=== PATIENT | male | born 1970 | race Caucasian/White ===

== ENCOUNTER 2020-04-22 21:03 | Observation (INO) | payer BC ==
[2020-04-22 21:48] LABS: #Eosinphils 0.6 thou/uL (0.0-0.7); #Lymphocytes 2.9 thou/uL (1.20-3.40); #Monocytes 0.7 thou/uL (0.11-0.59); #Neutrophils 5.1 thou/uL (1.40-6.50); %Basophils 0.5 % (0.0-1.0); %Eosinophils 6.1 % (0.0-10.0); %Lymphocytes 31.1 % (21.0-51.0); %Monocytes 7.5 % (0.0-10.0); %Neutrophils 54.8 % (42.0-75.0); Hemoglobin 15.9 g/dL (14.0-18.0); Mean Corpuscular HGB CONC 33.6 g/dL (32.0-36.0); Mean Corpuscular Volume 95.4 fL (78.0-98.0); Mean Platelet Volume 7.2 fL (7.4-10.4); Platelet Count 197 thou/uL (130-400); RBC Distribution Width 11.4 % (11.5-14.5); Red Blood Cell (RBC) Count 4.97 mill/uL (4.70-6.10); White Blood Cell (WBC) Count 9.3 thou/uL (4.8-10.8)
--- NOTE | 2020-04-22 21:53 | RAD ---
FRONTAL RADIOGRAPH CHEST: 04/22/20 COMPARISON: None. HISTORY: Chest tightness, chest pain. FINDINGS: Lungs are clear. Heart and mediastinal contours are unremarkable. IMPRESSION: No acute findings. POS: [facility]
[2020-04-22 22:22] LABS: CKMB 2.1 ng/mL (0-6.6)
[2020-04-22] MEDS ORDERED: Aspirin Chewable 81 MG TAB ONE (22:29)
[2020-04-22] MEDS ORDERED: Nitroglycerin 2% Ointment 1 INCH/1 GM Packet ONE (22:29)
[2020-04-22 22:57] LABS: ALT (SGPT) 16 U/L (8-55); AST (SGOT) 15 U/L (5-34); Albumin 4.7 g/dL (3.5-5.0); Alkaline Phosphatase 60 U/L (40-110); Anion Gap 15 mmol/L (10-20); BUN (Urea Nitrogen) 21 mg/dL (8.4-25.7); Bilirubin, Total 0.8 mg/dL (0.2-1.2); CK (CPK) 107 U/L (30-200); Calc. Creatinine Clearance 0 mL/min (70-130); Carbon Dioxide 29 mmol/L (22-29); Chloride 99 mmol/L (98-107); Estimated GFR-MDRD 68; Globulin 3.1 g/dL (2.4-3.5); Glucose 139 mg/dL (70-105); Lipase 23 U/L (8-78); Potassium 4.5 mmol/L (3.5-5.1); Protein, Total 7.8 g/dL (6.0-8.3); Sodium 138 mmol/L (136-145)
[2020-04-22] MEDS ORDERED: Enoxaparin Sodium 80 MG/0.8 ML SYRINGE ONE (23:13)
[2020-04-23] MEDS ORDERED: Acetaminophen 325 MG TAB PO PRN (00:25)
[2020-04-23] MEDS ORDERED: Acetaminophen 650 MG Suppository PR PRN (00:25)
[2020-04-23] MEDS ORDERED: Nitroglycerin 0.4 MG TAB (25 Tab Bottle) PO PRN (00:30)
[2020-04-23] MEDS ORDERED: Sodium Chloride 0.9% 1,000 ML IV SCH (00:30)
--- NOTE | 2020-04-23 00:44 | PDOC.HHP ---
Hospitalist HPI - History of Present Illness Chest pain History of Present Illness: Patient presents with complaints of intermittent exertional chest pain for the last 3 days. He states the level of pain ranges from 4 to 6 out of 10 in severity. The worst pain typically brought on when he walks long distances. Mild pain with light activity such as washing dishes. He reports being fairly active and initially thought his pain might be muscular in nature since it seemed to be exacerbated when laying on his right side. The pain at times radiates to right arm, sometimes to his back. He tried taking aspirin on two occasions for the pain. He states what always helps immediately is when he stops to rest. He has had a stress test in the past many years ago but has been worried about his asthma and his chronic issues with tachycardia to have another one done. ED Course: He had an EKG done which was unremarkable, HR 97. Chest xray showed no acute changes. Labs obtained demonstrated a trop of 0.108, CKMB 2.1. FBC unremarkable. LFTs normal and lipase 23. BUN 21, Creat 1.13, GFR 68. Given Lovenox 1 mg/kg x 1. Nitro bid 1 inch and 324 mg of Aspirin. Hospitalist ROS - Review of Systems Constitutional: denies: fever, chills, sweats, weakness, malaise, other Eyes: denies: pain, vision change, conjunctivae inflammation, eyelid inflammation, redness, other ENT: denies: ear pain, ear discharge, nose pain, nose discharge, nose congestion , mouth pain, mouth swelling, throat pain, throat swelling, other Respiratory: reports: cough (chronic due to PND), dry Cardiovascular: reports: chest pain (substernal). denies: palpitations, orthopnea, paroxysmal noc. dyspnea, edema, light headedness, other Gastrointestinal: denies: nausea, vomiting, abdominal pain, diarrhea, constipation, melena, hematochezia, other Genitourinary: denies: dysuria, frequency, incontinence, hematuria, retention, other Musculoskeletal: reports: arm pain (right arm discomfort). denies: neck pain, shoulder pain, back pain, hand pain, leg pain, foot pain, other Skin: denies: rash, lesions, sheron, bruising, other Neurological: denies: weakness, numbness, incoordination, change in speech, confusion, seizures, other - Medication Medications: Allergies: Keflex, Sulfa Current Medications: cetirizine TABLET : Strength - 10 mg : ORAL Patient Dose: 1 tab(s) Oral once a day. metFORMIN TABLET : Strength - 500 mg : ORAL Patient Dose: 1 tab(s) Oral 2 times a day. Hospitalist History - Past Medical History Pulmonary: reports: asthma Endocrine: reports: Diabetes - Past Surgical History Past Surgical History: reports: no pertinent history - Family History Family History: reports: no pertinent history - Social History Smoking Status: Never smoker Alcohol: reports: None Drugs: reports: none Living Situation: With Family Activity level: independent ambulation - Exam General Appearance: NAD, awake alert Eye: PERRL, anicteric sclera ENT: normocephalic atraumatic, no oropharyngeal lesions, moist mucosa Neck: supple, no lymphadenopathy Heart: RRR, no murmur, no gallops, no rubs Respiratory: CTAB, no wheezes, no rales, no ronchi, normal chest expansion Gastrointestinal: soft, non-tender, non-distended, normal bowel sounds, no guarding, no rigidity Extremities: no edema Skin: normal turgor, no lesions, no rashes Neurological: cranial nerve grossly intact, normal sensation to touch Musculoskeletal: normal tone, normal strength, no muscle wasting Psychiatric: normal affect, normal behavior, A&O x 3 Hospitalist Results - Labs Result Diagrams: 04/22/20 21:30 04/22/20 21:30 Lab results: WBC 9.3 thou/uL (4.8-10.8) 04/22/20 21:30 Hgb 15.9 g/dL (14.0-18.0) 04/22/20 21:30 Hct 47.5 % (42.0-52.0) 04/22/20 21:30 MCV 95.4 fL (78.0-98.0) 04/22/20 21:30 Plt Count 197 thou/uL (130-400) 04/22/20 21:30 Neutrophils % 54.8 % (42.0-75.0) 04/22/20 21:30 Sodium 138 mmol/L (136-145) 04/22/20 21:30 Potassium 4.5 mmol/L (3.5-5.1) 04/22/20 21:30 Chloride 99 mmol/L (98-107) 04/22/20 21:30 Carbon Dioxide 29 mmol/L (22-29) 04/22/20 21:30 BUN 21 mg/dL (8.4-25.7) 04/22/20 21:30 Creatinine 1.13 mg/dL (0.7-1.3) 04/22/20 21:30 Glucose 139 mg/dL (70-105) H 04/22/20 21:30 Calcium 10.0 mg/dL (7.8-10.44) 04/22/20 21:30 Total Bilirubin 0.8 mg/dL (0.2-1.2) 04/22/20 21:30 AST 15 U/L (5-34) 04/22/20 21:30 ALT 16 U/L (8-55) 04/22/20 21:30 Alkaline Phosphatase 60 U/L (40-110) 04/22/20 21:30 Creatine Kinase 107 U/L (30-200) 04/22/20 21:30 CK-MB (CK-2) 2.1 ng/mL (0-6.6) 04/22/20 21:30 Troponin I 0.108 ng/mL (< 0.028) H 04/22/20 21:30 Serum Total Protein 7.8 g/dL (6.0-8.3) 04/22/20 21: Albumin 4.7 g/dL (3.5-5.0) 04/22/20 21:30 Lipase 23 U/L (8-78) 04/22/20 21:30 - Radiology Interpretation Chest x-ray Status: report reviewed by ct Hospitalist H&P A/P - Problem (1) Exertional chest pain Code(s): R07.9 - CHEST PAIN, UNSPECIFIED Status: Acute (2) Elevated troponin Code(s): R79.89 - OTHER SPECIFIED ABNORMAL FINDINGS OF BLOOD CHEMISTRY Status : Acute (3) Diabetes mellitus Code(s): E11.9 - TYPE 2 DIABETES MELLITUS WITHOUT COMPLICATIONS Status: Chronic (4) Asthma Code(s): J45.909 - UNSPECIFIED ASTHMA, UNCOMPLICATED Status: Chronic - Plan Plan: Cardiac monitoring. Continue to trend troponins and continue Lovenox. Consult placed to Cardiology (Dr. Cross). Add-on Mg+, BNP, TSH, and Lipid panel. Gentle IV fluids. NPO pending cardiology review. Mechanical SCDs for DVT prophylaxis. Famotidine for GI prophylaxis. Monitor glucose. ISS initiated. CODE STATUS FULL Surrogate decision maker is his : Amina Ortega. PCP: Dr. Ravinder Rivera.
[2020-04-23 01:02] VITALS: BMI 27.3
[2020-04-23 01:06] LABS: Troponin I 0.122 ng/mL (< 0.028)
[2020-04-23] MEDS ORDERED: Dextrose 50% Abboject 50 ML SYRINGE SLOW IVP PRN (01:29)
[2020-04-23] MEDS ORDERED: Dextrose 5% in Water 1,000 ML IV PRN (01:29)
[2020-04-23] MEDS ORDERED: HumaLOG 300 UNITS/3 ML VIAL SC PRN ×2 (01:29)
[2020-04-23 04:28] LABS: #Basophils 0.1 thou/uL (0.0-0.2); #Eosinphils 0.6 thou/uL (0.0-0.7); #Lymphocytes 2.3 thou/uL (1.20-3.40); #Monocytes 0.6 thou/uL (0.11-0.59); #Neutrophils 5.3 thou/uL (1.40-6.50); %Basophils 0.8 % (0.0-1.0); %Eosinophils 6.8 % (0.0-10.0); %Lymphocytes 26.2 % (21.0-51.0); %Monocytes 6.2 % (0.0-10.0); Hemoglobin 15.3 g/dL (14.0-18.0); Mean Corpuscular HGB CONC 33.9 g/dL (32.0-36.0); Mean Corpuscular Hemoglobin 32.1 pg (27.0-31.0); Mean Corpuscular Volume 94.7 fL (78.0-98.0); Mean Platelet Volume 7.2 fL (7.4-10.4); Platelet Count 184 thou/uL (130-400); RBC Distribution Width 11.3 % (11.5-14.5); Red Blood Cell (RBC) Count 4.78 mill/uL (4.70-6.10); White Blood Cell (WBC) Count 8.9 thou/uL (4.8-10.8)
[2020-04-23 04:34] LABS: Hemoglobin A1c 6.3 % (4.0-6.0)
[2020-04-23 04:39] LABS: Anion Gap 12 mmol/L (10-20); BUN (Urea Nitrogen) 26 mg/dL (8.4-25.7); Calc. Creatinine Clearance 97 mL/min (70-130); Calcium 9.3 mg/dL (7.8-10.44); Carbon Dioxide 29 mmol/L (22-29); Cardiac Risk 7.9 (Less than 4.5); Chloride 101 mmol/L (98-107); Cholesterol 205 mg/dl (< 200 Desired); Estimated GFR-MDRD 75; Glucose 157 mg/dL (70-105); HDL Cholesterol 26 mg/dL (>60 Neg Risk); Potassium 4.4 mmol/L (3.5-5.1); Sodium 138 mmol/L (136-145); Triglycerides 474 mg/dL (Less than 150)
[2020-04-23 04:43] LABS: Troponin I 0.151 ng/mL (< 0.028)
[2020-04-23] MEDS ORDERED: Enoxaparin Sodium 80 MG/0.8 ML SYRINGE SC SCH (09:00)
[2020-04-23] MEDS ORDERED: Iopamidol 370 76% 50 ML VIAL FS ONE (10:52)
[2020-04-23] MEDS ORDERED: Iopamidol 370 76% 100 ML VIAL ONE (10:52)
[2020-04-23] MEDS ORDERED: Nitroglycerin 100MG/250ML BOT 250 ML ONE (13:25)
[2020-04-23] MEDS ORDERED: Heparin 10,000 UNITS/1 ML VIAL ONE (13:25)
[2020-04-23] MEDS ORDERED: Verapamil 5 MG/2 ML VIAL ONE ×2 (13:25→14:30)
[2020-04-23] MEDS ORDERED: Fentanyl 100 MCG/2 ML VIAL ONE (13:53)
[2020-04-23] MEDS ORDERED: Midazolam HCl 2 mg/2 ml Vial ONE (13:53)
[2020-04-23] MEDS: Famotidine/PF 20 mg/2ml Vial SLOW IVP SCH ×2 (13:55→22:02)
[2020-04-23] MEDS ORDERED: TICAGRELOR 90 MG TABLET ONE (14:30)
[2020-04-23] MEDS ORDERED: Morphine 2 MG/ML SYRINGE SLOW IVP PRN (14:52)
[2020-04-23] MEDS ORDERED: Sodium Chloride 0.9% 500 ML IV SCH (15:00)
[2020-04-23 15:20] LABS: Hemoglobin 14.9 g/dL (14.0-18.0); Platelet Count 187 thou/uL (130-400)
--- NOTE | 2020-04-23 16:33 | CON ---
DATE OF CONSULTATION: 04/23/2020 REASON FOR CONSULTATION: Non-ST elevation TX. HISTORY OF PRESENT ILLNESS: Mr. Ortega is a pleasant 49-year-old white gentleman, who comes to the hospital for chest pain. For the past 2 weeks, he has noted midsternal chest pain. It radiates to both shoulders and to the back. He gets it worse when he is exerting himself and it improves with rest. Lately, he has been getting a lot more frequent with less exertion to the point where he has had it at rest many times. On my evaluation, he is having mild chest tightness in the midsternal area, but it gets better. He denies any syncope or presyncope. PAST MEDICAL HISTORY: 1. Diagnosed with diabetes just a year ago. 2. Bronchial asthma. PAST SURGICAL HISTORY: None. FAMILY HISTORY: Noncontributory. SOCIAL HISTORY: No alcohol. No tobacco or drugs. 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 He is to Ms. Huynh from [employer]. OUTPATIENT MEDICATIONS: 1. Loratadine 10 mg a day. 2. Metformin 500 mg b.i.d. ALLERGIES: CEPHALEXIN AND SULFA DRUGS. REVIEW OF SYSTEMS: A 12-point review of systems was done and was all negative unless stated in the history of present illness. PHYSICAL EXAMINATION: VITAL SIGNS: Temperature 98.0, pulse 86, respiratory rate 16, saturating 98% on room air, blood pressure 116/71. GENERAL: Awake, alert, and oriented x3. No distress. HEENT: Normocephalic and atraumatic. NECK: Supple. LUNGS: Clear. CARDIOVASCULAR: S1 and S2. No S3 or S4. No murmurs. No rubs. ABDOMEN: Soft. Positive bowel sounds. EXTREMITIES: No edema. SKIN: Warm and dry. LABORATORY DATA: Reviewed. White count of 8.9, hemoglobin of 15, hematocrit 45, and platelet count of 184. Chemistries showed unremarkable except for a BUN of 26 and creatinine of 1.4. GFR was 75. Glucose was 157. Troponin was 0.10, 0.12 and then 0.15, mildly increased. Triglycerides are 474, cholesterol 205, HDL of 26, LDL could not be calculated. TSH was normal. Lipase was 23. EKG was reviewed. ASSESSMENT: 1. [id number] myocardial infarction. 2. Diabetes. PLAN: 1. Certainly, his symptoms are concerning for angina and his troponin continues to elevate. We will recommend that we undergo heart catheterization. He is having ongoing chest pain. I think we need to proceed now. We spoke about the risks and benefits of the procedure. Risks included, but not limited to stroke, TX, , bleeding, need for blood transfusion, limb loss, and organ loss. He verbalized understanding of this and agrees to proceed. We will plan on doing a left heart catheterization through the right radial approach. Drug-eluting stents if needed after discussion with him about a long-term anticoagulation with drug-eluting stents, which he agrees to. 2. Further recommendations per results of coronary angiography. Job ID: [id number]
[2020-04-23] MEDS ORDERED: Atorvastatin Calcium 40 MG TAB PO SCH (21:00)
[2020-04-23] MEDS: TICAGRELOR 90 MG TABLET PO SCH (22:02)
[2020-04-24 04:21] LABS: #Eosinphils 0.6 thou/uL (0.0-0.7); #Lymphocytes 2.3 thou/uL (1.20-3.40); #Monocytes 0.9 thou/uL (0.11-0.59); #Neutrophils 5.7 thou/uL (1.40-6.50); %Basophils 0.3 % (0.0-1.0); %Eosinophils 6.1 % (0.0-10.0); %Monocytes 9.9 % (0.0-10.0); %Neutrophils 59.8 % (42.0-75.0); Hemoglobin 15.4 g/dL (14.0-18.0); Mean Corpuscular HGB CONC 33.5 g/dL (32.0-36.0); Mean Corpuscular Hemoglobin 31.7 pg (27.0-31.0); Mean Corpuscular Volume 94.8 fL (78.0-98.0); Mean Platelet Volume 7.2 fL (7.4-10.4); Platelet Count 173 thou/uL (130-400); RBC Distribution Width 11.5 % (11.5-14.5); Red Blood Cell (RBC) Count 4.87 mill/uL (4.70-6.10); White Blood Cell (WBC) Count 9.6 thou/uL (4.8-10.8)
[2020-04-24 05:32] LABS: ALT (SGPT) 12 U/L (8-55); AST (SGOT) 13 U/L (5-34); Albumin 4.1 g/dL (3.5-5.0); Alkaline Phosphatase 49 U/L (40-110); Anion Gap 10 mmol/L (10-20); BUN (Urea Nitrogen) 16 mg/dL (8.4-25.7); Bilirubin, Total 1.2 mg/dL (0.2-1.2); Calc. Creatinine Clearance 92 mL/min (70-130); Calcium 9.2 mg/dL (7.8-10.44); Carbon Dioxide 29 mmol/L (22-29); Chloride 103 mmol/L (98-107); Estimated GFR-MDRD 71; Globulin 3.2 g/dL (2.4-3.5); Glucose 110 mg/dL (70-105); Protein, Total 7.3 g/dL (6.0-8.3); Sodium 138 mmol/L (136-145)
[2020-04-24] MEDS ORDERED: Aspirin Chewable 81 MG TAB PO SCH (09:00)
[2020-04-24] MEDS: Famotidine/PF 20 mg/2ml Vial SLOW IVP SCH (09:18)
[2020-04-24] MEDS: TICAGRELOR 90 MG TABLET PO SCH (09:18)
[2020-04-24 11:46] VITALS: BP 121/81; TEMP 98.6
--- NOTE | 2020-04-24 11:52 | PDOC.CPN ---
- Subjective Date: 04/24/20 Time: 11:49 Interval history: He is doing better. No more chest pain. No SOB. - Review of Systems General: denies: fever/chills, weight/appetite/sleep changes, night sweats, fatigue Respiratory: denies: cough, congestion, shortness of breath, exercise intolerance Cardiovascular: denies: chest pain, palpitation, edema, paroxysmal nocturnal dyspnea, orthopnea Gastrointestinal: denies: nausea, vomiting, diarrhea, constipation, abd pain, GI bleeding Musculoskeletal: denies: pain, tenderness, stiffness, swelling, arthritis/ arthralgias Neurological: denies: numbness, syncope, seizure, weakness - Objective Allergies/Adverse Reactions: Allergies Allergy/AdvReac Type Severity Reaction Status Date / Time cephalexin [From Keflex] Allergy Verified 04/23/20 01:14 Sulfa (Sulfonamide Allergy Verified 04/23/20 01:14 Antibiotics) Visit Medications: Current Medications Acetaminophen (Tylenol) 650 mg PO Q4H PRN PRN Reason: Headache/Fever/Mild Pain (1-3) Acetaminophen (Tylenol) 650 mg OR Q4H PRN PRN Reason: Headache/Fever/Mild Pain (1-3) Aspirin (Aspirin Chewable) 81 mg PO DAILY [facility] Last Admin: 04/24/20 09:18 Dose: 81 mg Atorvastatin Calcium (Lipitor) 40 mg PO HS [facility] Last Admin: 04/23/20 22:02 Dose: 40 mg Dextrose/Water (Dextrose 50%) 25 gm SLOW IVP PRN PRN PRN Reason: Hypoglycemia Famotidine (Pepcid) 20 mg SLOW IVP Q12HR [facility] Last Admin: 04/24/20 09:18 Dose: 20 mg Glucagon (Glucagon) 1 mg IM PRN PRN PRN Reason: Hypoglycemia Dextrose/Water (D5w) 1,000 mls @ 0 mls/hr IV .Q0M PRN PRN Reason: Hypoglycemia Insulin Human Lispro (Humalog) 0 units SC .MILD SLIDING SCALE PRN PRN Reason: Mild Correctional Scale Insulin Human Lispro (Humalog) 0 units SC .BEDTIME SLIDING SC PRN PRN Reason: Bedtime Correctional Scale Lisinopril (Zestril) 1.25 mg PO DAILY [facility] Morphine Sulfate (Morphine) 2 mg SLOW IVP Q4H PRN PRN Reason: Moderate Chest Pain (4-6) Nitroglycerin (Nitrostat) 0.4 mg PO Q5MIN PRN PRN Reason: Chest Pain Sodium Chloride (Flush - Normal Saline) 10 ml IVF Q12HR PRN PRN Reason: Saline Flush Sodium Chloride (Flush - Normal Saline) 10 ml IVF PRN PRN PRN Reason: Saline Flush Ticagrelor (Brilinta) 90 mg PO BID [facility] Last Admin: 04/24/20 09:18 Dose: 90 mg Vital Signs & Weight: Vital Signs Temp Pulse Resp BP Pulse Ox 04/24/20 11:45 98.6 F 92 20 121/81 99 04/24/20 09:16 98.7 F 82 16 119/78 98 04/24/20 04:11 98.2 F 75 14 102/74 99 Weight 169 lb 14.4 oz - Physical Exam General: alert & oriented x3 HEENT: mucus membranes moist Neck: supple neck Cardiac: regular rate and rhythm Lungs: normal breath sounds Neuro: grossly intact Abdomen: active bowel sounds Extremities: no edema Skin: clear Musculoskeletal: no pain - Labs Result Diagrams: 04/24/20 03:54 04/24/20 03:54 Troponin/CKMB CK-MB (CK-2) 2.1 ng/mL (0-6.6) 04/22/20 21:30 Troponin I 0.151 ng/mL (< 0.028) H 04/23/20 04:10 - Telemetry Sinus rhythms and dysrhythmias: sinus rhythm - Assessment/Plan Assessment/Plan: 1. NSTEMI 2. CAD 3. S/P PCI to LAD, NOVA. 4. DMT2 PLAN: - Stable for discharge. - Will add very low dose ACEI - No BB as BP may not allow, will plan on adding as outpatient if BP still allows after ACEI added. - Continue Brilinta and low dose ASA and statin. - Follow up in the office in 4 weeks.
[2020-04-25] MEDS ORDERED: Lisinopril 2.5 MG TAB PO SCH (09:00)
--- NOTE | 2020-04-27 11:22 | DIS ---
DATE OF ADMISSION: 04/23/2020 DATE OF DISCHARGE: 04/24/2020 DISCHARGE DIAGNOSIS: [id number] myocardial infarction. CONSULTATIONS: Cardiology with Dr. Lc Cross. PROCEDURES: Cardiac cath, 04/23. BRIEF HISTORY OF PRESENT ILLNESS: This is a 49-year-old male with past medical history of diabetes, who presented to the emergency room with chest pain for the past 3 days. The patient states his chest pain is worse with walking long distances and relieved with rest. He reported aspirin always helps his pain. When the patient presented to the emergency room, his EKG was unremarkable. His troponin was 0.108. He was started on aspirin and Lovenox and admitted to the hospital for further evaluation. HOSPITAL COURSE: NSTEMI: The patient underwent cardiac cath on 04/23, which showed severe mid LAD disease with 99% stenosis on the mid LAD. He had 50% stenosis on the first diagonal, 30% on the proximal circumflex, 20% in the proximal RCA, and 30 % on the right PDA. He underwent placement of a drug-eluting stent to his mid LAD. The patient reported resolution of his chest pain the following day. His troponin peaked at 0.051. Echocardiogram done showed normal EF of 50% to 55%, and septal hypokinesis. He was discharged with aspirin, statin and Brilinta, which he should take for 1 year. He was also discharged on a low dose MARTÍNEZ inhibitor of 1.25 lisinopril daily. He was not discharged on a beta-pedro due to low systolic blood pressures in the 100s. He should follow up with Dr. Crsos in 1 month for consideration of initiation of a beta pedro. He should avoid strenuous activity for a week. He should follow up with his PCP in a week. DISCHARGE PHYSICAL EXAMINATION: VITAL SIGNS: Temperature 98.6, heart rate 92, respiratory rate 20, O2 saturation 99% on room air, blood pressure 121/80. GENERAL: The patient is alert, awake, oriented x3. CVS: Regular rate and rhythm with no murmurs, rubs, or gallops. LUNGS: Clear to auscultation bilaterally. ABDOMEN: Positive bowel sounds, soft, nontender, nondistended. EXTREMITIES: No edema. PERTINENT LABORATORY DATA: CBC 04/24: Normal. BMP 04/24: Normal. LFTs 04/24: Normal. Lipid panel: Triglycerides 474, cholesterol 205, LDL unable to calculate. HDL 26. TSH: 1.52. PERTINENT IMAGING: Chest x-ray 04/22: Shows no acute findings. Echo 04/23: Shows EF 50% to 55%, grade 1/3 diastolic dysfunction, septal hypokinesis, mild MR, mild TR. DISCHARGE CONDITION: Stable. ACTIVITY: As tolerated. DIET: Cardiac diet. DISCHARGE INSTRUCTIONS: The patient should follow up with his PCP in a week. 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 Job ID: [id number] MTDD
== END 2020-04-24 14:01 | disposition home or self-care (01) ==
LOC: ERS 21:03 → 2NO 04-23 00:28
PROVIDERS: ADMIT Internal Medicine; ATTEND Internal Medicine
PROC: 027034Z Dilation of Coronary Artery, One Artery with Drug-eluting Intraluminal Device, Percutaneous Approach (ICD-10-PCS; principal; 2020-04-23)
PROC: 4A023N7 Measurement of Cardiac Sampling and Pressure, Left Heart, Percutaneous Approach (ICD-10-PCS; 2020-04-23)
PROC: B2111ZZ Fluoroscopy of Multiple Coronary Arteries using Low Osmolar Contrast (ICD-10-PCS; 2020-04-23)
DX: I21.4 Non-ST elevation (NSTEMI) myocardial infarction (principal); I25.10 Atherosclerotic heart disease of native coronary artery without angina pectoris; J45.909 Unspecified asthma, uncomplicated; E11.9 Type 2 diabetes mellitus without complications; E78.5 Hyperlipidemia, unspecified; Z79.84 Long term (current) use of oral hypoglycemic drugs; Z88.1 Allergy status to other antibiotic agents; Z88.2 Allergy status to sulfonamides
CPT/HCPCS: 36415; 36416; 71045; 80048; 80053; 80061; 82550; 82553; 83036; 83690; 83735; 83880; 84443; 84484; 85025; 85347; 92928; 93005; 93010; 93306; 93458; 93798; 94760; 96372; 96374; 96376; 99152; 99153; C1769; C1874; C9600; G0378; J1644; J1650; J2250; J3010; Q9967; S0028